=== PATIENT | female | born 1945 | race Caucasian/White ===

== ENCOUNTER 2017-10-24 06:30 | Day surgery (SDC) | payer OTHER ==
[~2017-10-24] VITALS: Ht 162.6 cm; Wt 90.7 kg
[~2017-10-24 06:30] MED LIST: ABILIFY5 MG PO; ALEVE220 M2 PO; ALL DAY ALLERGY10 M2 PO; ALTACE10 MG PO; AMOXICILLIN500 M1 PO; AMOXICILLIN500 MG PO; AMPICILLIN TRI500 MG PO; ARIPIPRAZOLE2 MG PO; ASPIR-LOW81 MG PO; AUGMENTIN875 MG PO; BACTRIM,SEPT1 TABLET PO; BENADRYL50 MG PO; BRINTELLIX20 MG PO; CALCIUM 600 +1 EAC4 PO; CALTRATE 6001 TABLE1 PO; CELEBREX200 MG PO; CIPRO500 MG PO; CLONAZEPAM1 MG PO; CLONIDINE HCL0.1 MG PO; COLACE100 MG PO; COREG25 M1 PO; COUMADIN,JANTOVE1 MG PO; COUMADIN,JANTOVE2 MG PO; CUBICIN500 MG/10 IV; CYMBALTA30 MG PO; CYMBALTA60 MG PO; DETROL LA4 MG PO; DIAZEPAM5 MG PO; DIFLUCAN200 MG PO; DILAUDID4 MG PO; DILAUDID8 MG PO; Diflucan PO; ENDOCET 5-3251 EACH PO; Ecotrin PO; FLAGYL500 MG PO; GLYCOPYRROLATE1 MG PO; HYDROCHLOROTHIA25 MG PO; HYDRODIURIL,O12.5 M2 PO; KLONOPIN1 MG PO; LASIX20 MG PO; LEXAPRO20 MG PO; LIDODERM 5% P1 PATCH TP; LOW DOSE ASPIRI81 M1 PO; Levaquin PO; MEROPENEM1 GM IV; METAXALL800 MG PO; MIRAPEX0.5 MG PO; Maxipime IV; NEURONTIN300 MG PO; OXYCONTIN20 MG PO; Osteo-Biflex,Flex-A- PO; OxyCODONE PO; OxyCONTIN PO; PERCOCET 5/31 TABLET PO; PRAMIPEXOLE D0.25 MG PO; PROTONIX40 MG PO; RANITIDINE HCL150 MG PO; ROBINUL1 MG PO; SENOKOT S,PE1 TABLET PO; Skelaxin PO; THERAGRAN1 TABLET PO; TRAMADOL HCL50 MG PO; TRILEPTAL300 MG PO; Tylenol Regular Stre PO; VANCOMYCIN1.25 GM/25 IV; VANCOMYCIN1500 MG/25 IV; VITAMIN B-12250 MCG PO; VITAMIN B-6100 MG PO; VYTORIN 10/21 TABLET PO; XARELTO1 EACH PO; ZESTORETIC 20-1 EAC1 NG; ZESTORETIC 20-1 EAC1 PO; ZOLOFT100 M1 PO; ZYVOX600 MG PO; Zoloft PO; oxyCODONE PO
[2017-10-24 07:59] LABS: HEMATOCRIT 43.4 % (36.0-46.0); HEMOGLOBIN 14.1 G/DL (11.9-15.5); MCH 27.9 PG (29.0-34.0); MCHC 32.5 G/DL (30.0-36.0); MCV 85.8 FL (83-99); PLATELET COUNT 284 K/uL (156-360); RBC DIS.WIDTH-CV 14.6 % (11.8-14.6); RBC DIS.WIDTH-SD 46.1 % (39-53); RED BLOOD COUNT 5.06 M/uL (3.80-5.20); WHITE BLOOD COUNT 8.8 K/uL (4.1-10.2)
[2017-10-24 08:07] VITALS: BP 143/65
[2017-10-24 12:25] VITALS: BP 140/65
[2017-10-24 13:12] VITALS: BP 132/60
== END 2017-10-24 13:37 | disposition home or self-care (01) ==
LOC: SDC 06:30
PROVIDERS: Urology
PROC: 0TSD0ZZ Reposition Urethra, Open Approach (ICD-10-PCS; principal; 2017-10-24)
PROC: 0TJB8ZZ Inspection of Bladder, Via Natural or Artificial Opening Endoscopic (ICD-10-PCS; principal; 2017-10-24)
DX: N39.3 Stress incontinence (female) (male) (principal); Z89.612 Acquired absence of left leg above knee; I10 Essential (primary) hypertension; Z87.440 Personal history of urinary (tract) infections; Z90.710 Acquired absence of both cervix and uterus
CPT/HCPCS: 80048; 85027; 93005; C1771; J0131; J0330; J0461; J0690; J1100; J1580; J1885; J2250; J2370; J2405; J2710; J7643